=== PATIENT | female | born 1970 | race Caucasian/White ===

== ENCOUNTER → 2018-09-25 | Outpatient (CLI) | payer OTHER ==
[~2018-09-25] MED LIST: ACETAMINOPHEN650 M5 PO; AVONEX PEN30 MCG/0.1 IM; BENTYL 10 MG CA10 MG; BENTYL20 MG PO; CENESTIN0.625 MG PO; COPAXONE40 MG/1 ML SQ; CYMBALTA60 MG PO; DICLOFENAC SOD50 MG PO; DILAUDID 2 MG TA2 MG PO; DITROPAN XL5 M1 PO; FOSAMAX 35 MG35 M1 PG; IBUPROFEN 600600 M1 PO; IBUPROFEN 800800 M1 PO; NEURONTIN 300300 M1 PO; NEURONTIN600 MG PO; NORCO 5-325 TA1 EACH PO; PANTOPRAZOLE SO40 M1 PO; PHILLIPS' LAXA100 MG PO; PREDNISONE50 MG PO; PRILOSEC 20 MG20 MG PO; PROAIR HFA8.5 GM INH; SMOOTHLAX17 GM PO; TESSALON PERLE100 MG PO; TIZANIDINE HCL4 MG PO; TOPAMAX100 MG PO; VOLTAREN GEL 1100 G2 TOP; ZPAK PO
== END ==
LOC: M.CT 09-21 11:00
DX: R10.32 Left lower quadrant pain (principal); R19.7 Diarrhea, unspecified; R63.4 Abnormal weight loss; Z90.49 Acquired absence of other specified parts of digestive tract; Z90.710 Acquired absence of both cervix and uterus; Z90.722 Acquired absence of ovaries, bilateral